=== PATIENT | female | born 1965 | race Hispanic/Latino ===

== ENCOUNTER 2018-03-25 05:35 | Observation (INO) | payer OTHER ==
[2018-03-24 18:08] LABS: BASOPHILS # (AUTO) 0.1 (0.0-0.1); BASOPHILS % 0.9 % (0.0-1.0); EOSINOPHILS # (AUTO) 0.3 (0.0-0.4); EOSINOPHILS % 3.2 % (0.0-6.0); HEMATOCRIT 40.5 % (34.2-44.1); HEMOGLOBIN 13.6 g/dL (12.0-16.0); LYMPHOCYTES # (AUTO) 3.4 (1.0-3.2); LYMPHOCYTES % 32.7 % (18.0-39.1); MEAN CORPUSCULAR HEMOGLOBIN 31.1 pg (28-32); MEAN CORPUSCULAR HGB CONC 33.6 g/dL (31-35); MEAN CORPUSCULAR VOLUME 92.7 fL (81-99); MONOCYTES # (AUTO) 0.8 (0.2-0.8); MONOCYTES % 7.4 % (4.4-11.3); NEUTROPHILS # (AUTO) 5.8 (2.1-6.9); NEUTROPHILS % 55.2 % (38.7-80.0); PLATELET COUNT 425 x10e3/uL (140-360); RED BLOOD COUNT 4.37 x10e6/uL (3.6-5.1); RED CELL DISTRIBUTION WIDTH 13.1 % (11.7-14.4)
[2018-03-24 18:19] LABS: INR 0.88; PROTHROMBIN TIME 12.8 seconds (11.9-14.5)
[2018-03-24 18:20] LABS: PARTIAL THROMBOPLASTIN TIME 27.5 seconds (23.8-35.5)
[2018-03-24 18:25] LABS: ANION GAP 14.9 mmol/L (8-16); BLOOD UREA NITROGEN 17 mg/dL (7-26); BUN/CREATININE RATIO 22 (6-25); CALCIUM 9.7 mg/dL (8.4-10.2); CARBON DIOXIDE 24 mmol/L (22-29); CHLORIDE 100 mmol/L (98-107); CREATININE, SERUM 0.77 mg/dL (0.57-1.11); EST GLOMERULAR FILTRATION RATE > 60 ML/MIN (60-); GLUCOSE 87 mg/dL (74-118); POTASSIUM 3.9 mmol/L (3.5-5.1); SODIUM 135 mmol/L (136-145)
--- NOTE | 2018-03-24 18:37 | Diagnostic Imaging Report ---
EXAMINATION: PA and lateral views of the chest. COMPARISON: None CLINICAL HISTORY: Preop examination DISCUSSION: Lines/tubes: None. Lungs: The lungs are well inflated and clear. There is no evidence of pneumonia or pulmonary edema. Pleura: There is no pleural effusion or pneumothorax. Heart and mediastinum: Cardiomediastinal silhouette is unremarkable. Pulmonary vasculature is normal. Bones and soft tissues: No acute bony abnormalities. IMPRESSION: No acute cardiopulmonary abnormalities. Signed by: Dr. Malvin Sprague M.D. on 03/24/2018 6:34 PM
[~2018-03-25] VITALS: Ht 172.7 cm; Wt 113.0 kg
[~2018-03-25 05:35] MED LIST: TYLENOL EXTRA500 MG PO; ZORVOLEX PO
--- OUTSIDE RECORDS SUMMARY | 2018-03-25 05:43 | XMS REPORT ---
Author Author [facility] Address Unknown Phone Unavailable Care Team Providers Care Lining Cutter Name Role Phone NANCY MCKEON Unavailable Unavailable Problems This patient has no known problems. Allergies, Adverse Reactions, Alerts This patient has no known allergies or adverse reactions. Medications This patient has no known medications. Results Test Description Test Time Test Comments Text Results Atomic Results Result Comments CHEST 2 VIEWS 2018-03-24 18:33:00 [place] [address] Patient Name: REN LUNA MR #: [id number] : 1965 Age/Sex: 52/F Req #: [id number] Adm Physician: Ordered by: NANCY MCKEON MD Report #: [id number] Location: OR Room/Bed: Procedure: [id number] DX/CHEST 2 VIEWS Exam Date: 03/24/18 Exam Time: 1805 REPORT STATUS: Signed EXAMINATION: PA and lateral views of the chest. COMPARISON: None CLINICAL HISTORY: Preop examination DISCUSSION: Lines/tubes: None. Lungs: The lungs are well inflated and clear. There is no evidence of pneumonia or pulmonary edema. Pleura: There is no pleural effusion or pneumothorax. Heart and mediastinum: Cardiomediastinal silhouette is unremarkable. Pulmonary vasculature is normal. Bones and soft tissues: No acute bony abnormalities. IMPRESSION: No acute cardiopulmonary abnormalities. Signed by: Dr. Key Sprague M.D. on 03/24/2018 6:34 PM Dictated By: KEY SPRAGUE MD 33 Transcribed By: HERMELINDA on 03/24/181833 COPY TO: NANCY MCKEON MD
[2018-03-25] MEDS ORDERED: THROMBIN FOR SOLN 5,000 UNIT VIAL ONE (06:41)
[2018-03-25] MEDS ORDERED: BUPIVACAINE 0.5%/EPI 30 ML SDV INJ ONE (06:41)
[2018-03-25] MEDS ORDERED: GELATIN SPONGE 12-7MM ONE (06:42)
[2018-03-25] MEDS ORDERED: BACITRACIN 50,000 UNIT VIAL ONE (06:42)
[2018-03-25] MEDS ORDERED: CEFAZOLIN SOD 2 GM/D5W 50ML 50 ML IV ONE (07:02)
[2018-03-25] MEDS ORDERED: ACETAMINOPHEN 1000 MG/100 ML 100 ML IV ONE (07:08)
[2018-03-25] MEDS ORDERED: LIDOCAINE HCL (LTA) 4 ML SOLN ONE (07:08)
[2018-03-25] MEDS ORDERED: LEXAPRO10 MG PO (07:09)
[2018-03-25] MEDS ORDERED: ONDANSETRON HCL INJ 2 MG/ML VIAL IV PRN (09:00)
[2018-03-25] MEDS: ZORVOLEX PO SCH ×3 (09:00→21:00)
[2018-03-25] MEDS ORDERED: PROMETHAZINE HCL (IM) 25 MG/ML VIAL IM PRN (09:00)
[2018-03-25] MEDS ORDERED: ACETAMINOPHEN 325 MG TAB PO PRN (09:00)
[2018-03-25] MEDS ORDERED: MAGNESIUM/ALUMINUM/SIMETHICONE 30 ML UDC PO PRN (09:00)
[2018-03-25] MEDS: ESCITALOPRAM OXALATE 10 MG TAB PO SCH (09:00)
[2018-03-25] MEDS ORDERED: CEPACOL SORE THROAT LOZENGES PO PRN (09:00)
[2018-03-25] MEDS ORDERED: MORPHINE SULFATE 5 MG/ML VIAL IM PRN (09:00)
[2018-03-25] MEDS ORDERED: ZOLPIDEM TARTRATE 5 MG TAB PO PRN (09:00)
[2018-03-25] MEDS: HYDROMORPHONE 2MG/ML 2 MG/ML ML IV PRN ×2 (09:15→23:02)
[2018-03-25] MEDS ORDERED: FENTANYL CITRATE/PF 100MCG/2 ML INJ ONE ×2 (09:24→15:16)
[2018-03-25] MEDS ORDERED: DIPHENHYDRAMINE HCL INJ 50 MG/ML VIAL ONE (09:55)
--- NOTE | 2018-03-25 10:30 | Operative Report ---
DATE OF PROCEDURE: March 25, 2018 PREOPERATIVE DIAGNOSIS: Right L4-L5 disk herniation with radiculopathy, M51.16. POSTOPERATIVE DIAGNOSIS: Right L4-L5 disk herniation with radiculopathy, M51.16. PROCEDURE: Right L4-L5 laminotomy, medial facetectomy and microsurgical diskectomy, 34873. ANESTHESIA: General. INDICATIONS: Patient is a 52-year-old woman who presents with a right L4-L5 disk herniation with inferior migration of the extruded disk fragment into the L5 lateral recess, symptomatic with severe right L5 radiculopathy. She was taken to the operating room for microsurgical diskectomy. PROCEDURE: After the induction of general anesthesia, the patient was placed on the operating table in the prone position over a Shyam frame. The lumbar region was prepped and draped in a sterile fashion. A preoperative x-ray was obtained. A small midline incision was created. Lumbar fascia was opened to the right of the midline, and subperiosteal dissection was carried out to expose the right side of the L4 and L5 laminae and the medial aspect of the facet joint. A 2nd x-ray confirmed correct localization. The operating microscope was brought in. A high-speed drill equipped with a juan diego bur was used to drill the inferior aspect of lamina of L4, the medial rim of the inferior articular process of L4 and the medial rim of the superior articular process of L5. The ligamentum flavum was resected. The dural sac and the L5 traversing nerve root were exposed. The nerve root was slightly retracted medially. The epidural veins were bipolar coagulated and divided lateral to the nerve root. The herniated disk material came into view just below the disk space within the L5 lateral recess markedly compressing that nerve root. A micro-ball probe was passed under the nerve root and used to deliver the extruded disk material, which was grasped with a micro-pituitary rongeur and removed. This maneuver was repeated multiple times, and several sizable fragments of disk were retrieved and removed from the L5 lateral recess until the nerve root was completely decompressed. The opening into the annulus of the disk was then enlarged with a #11 blade, and the loose contents of the L4-L5 disk were conservatively evacuated with curettes and pituitary rongeurs. Meticulous hemostasis was secured. The retractor was removed. The lumbar fascia was closed with #0 Vicryl sutures. Subcutaneous layer was closed with 2-0 Vicryl sutures. The skin was closed with 3-0 Monocryl sutures in a subcuticular fashion. Steri-Strips and dressing were applied. The patient was awakened, extubated and taken to the postanesthesia care unit in stable condition. No intraoperative complications were encountered. Estimated blood loss was 10 mL. Job#: [id number]
[2018-03-25] MEDS: LACTATED RINGER'S 1,000 ML IV SCH ×2 (10:59→16:56)
[2018-03-25 11:08] VITALS: BP 146/83
[2018-03-25 11:11] VITALS: BP 146/83
[2018-03-25 12:02] VITALS: BP 128/87
[2018-03-25] MEDS: OXYCODONE/ACETAMINOPHEN 5-325 1 EACH TABLET PO PRN ×2 (13:40→18:47)
[2018-03-25] MEDS: CARISOPRODOL 350 MG TAB PO PRN ×2 (13:40→18:47)
[2018-03-25] MEDS: CEFAZOLIN SOD 1 GM VIAL IV SCH ×2 (14:00→23:19)
[2018-03-25] MEDS ORDERED: CEFAZOLIN SOD 1 GM/D5W 50ML 50 ML IV SCH (14:00)
[2018-03-25] MEDS ORDERED: LIDOCAINE HCL 2% LOCAL INJ 5 ML SDV VIAL INJ ONE ×2 (15:16→15:25)
[2018-03-25] MEDS ORDERED: PROPOFOL IV EMULSION 10 MG/ML 20 ML VIAL ONE ×2 (15:16→15:25)
[2018-03-25] MEDS ORDERED: MIDAZOLAM HCL 2 MG/2 ML VIAL ONE (15:16)
[2018-03-25] MEDS ORDERED: SEVOFLURANE INHAL SOLN 250 ML PEN BTL ONE ×2 (15:16→15:25)
[2018-03-25] MEDS ORDERED: DEXAMETHASONE SOD PHOS INJ 4 MG/ML VIAL ONE ×2 (15:16→15:25)
[2018-03-25] MEDS ORDERED: ROCURONIUM BROMIDE 10 MG/ML 5ML VIAL ONE ×2 (15:16→15:25)
[2018-03-25] MEDS ORDERED: ONDANSETRON HCL INJ 2 MG/ML VIAL ONE ×2 (15:16→15:25)
[2018-03-25 15:59] VITALS: BP 127/73
[2018-03-25] MEDS ORDERED: MORPHINE SULFATE INJ 10 MG/ML IM PRN (17:00)
[2018-03-25 20:00] VITALS: BP 119/70
[2018-03-25] MEDS ORDERED: DIPHENHYDRAMINE HCL INJ 50 MG/ML VIAL IV PRN (21:15)
[2018-03-26] VITALS: BP 127/69
[2018-03-26] MEDS: OXYCODONE/ACETAMINOPHEN 5-325 1 EACH TABLET PO PRN ×3 (03:32→12:12)
[2018-03-26 04:00] VITALS: BP 121/62
[2018-03-26] MEDS: CEFAZOLIN SOD 1 GM VIAL IV SCH (06:43)
[2018-03-26 08:08] VITALS: BP 115/65
[2018-03-26] MEDS: ESCITALOPRAM OXALATE 10 MG TAB PO SCH (08:18)
[2018-03-26] MEDS: ZORVOLEX PO SCH (08:18)
[2018-03-26] MEDS ORDERED: NORCO 7.5-3251 EACH PO (09:56)
[2018-03-26 12:23] VITALS: BP 124/58
[2018-03-26 12:31] VITALS: BP 124/58
--- NOTE | 2018-04-16 07:12 | Diagnostic Imaging Report ---
Exam: Lateral view of the lumbar spine dated 03/25/2018 at 6:46 AM. History: Localization for surgery Comparison: None available Findings: Crosstable portable lateral view of the lumbar spine shows metallic markers over the L4-L5 disc space. Signed by: Dr. Clive Velez DO on 04/16/2018 7:08 AM
--- NOTE | 2018-04-16 07:13 | Diagnostic Imaging Report ---
Exam: Crosstable lateral portable view of the lumbar spine dated 03/25/2018 at 6:55 AM History: Localization for surgery Comparison: None available Findings: Metallic hemostat and probe pointing to the L4-L5 level is noted. Signed by: Dr. Clive Velez DO on 04/16/2018 7:10 AM
== END 2018-03-26 12:25 | disposition home or self-care (01) ==
LOC: OR 05:35 → PACU V 08:49 → MED/SURG 10:26
PROVIDERS: ADMIT Neurological Surgery; ATTEND Neurological Surgery
DX: M51.16 Intervertebral disc disorders with radiculopathy, lumbar region (principal); Z01.810 Encounter for preprocedural cardiovascular examination; Z01.812 Encounter for preprocedural laboratory examination; Z01.811 Encounter for preprocedural respiratory examination
CPT/HCPCS: 36415; 63047; 71046; 72020; 80048; 85025; 85610; 85730; 86850; 86900; 88304; 93005; G0378 ×2; J0131; J0690 ×3; J1100; J1170; J1200; J2001; J2250; J2405; J2704; J7120; J2270; J2550

== ENCOUNTER 2018-04-16 00:47 | Emergency (ER) | payer OTHER ==
[~2018-04-16] VITALS: Ht 172.7 cm; Wt 112.9 kg
[~2018-04-16 00:47] MED LIST changes: +LEXAPRO10 MG PO; +NORCO 7.5-3251 EACH PO
[2018-04-16] MEDS ORDERED: SODIUM CHLORIDE 0.9% 500ML 500 ML IV STA (01:13)
[2018-04-16] MEDS ORDERED: KETOROLAC TROMETHAMINE 30 MG/ML VIAL IV STA (01:13)
[2018-04-16 01:27] LABS: BASOPHILS # (AUTO) 0.1 (0.0-0.1); BASOPHILS % 0.7 % (0.0-1.0); EOSINOPHILS # (AUTO) 0.6 (0.0-0.4); EOSINOPHILS % 5.3 % (0.0-6.0); HEMATOCRIT 38.7 % (34.2-44.1); HEMOGLOBIN 13.1 g/dL (12.0-16.0); LYMPHOCYTES # (AUTO) 3.2 (1.0-3.2); LYMPHOCYTES % 28.3 % (18.0-39.1); MEAN CORPUSCULAR HEMOGLOBIN 31.1 pg (28-32); MEAN CORPUSCULAR HGB CONC 33.9 g/dL (31-35); MEAN CORPUSCULAR VOLUME 91.9 fL (81-99); MONOCYTES # (AUTO) 1.1 (0.2-0.8); MONOCYTES % 9.5 % (4.4-11.3); NEUTROPHILS # (AUTO) 6.3 (2.1-6.9); NEUTROPHILS % 55.8 % (38.7-80.0); PLATELET COUNT 314 x10e3/uL (140-360); RED BLOOD COUNT 4.21 x10e6/uL (3.6-5.1); RED CELL DISTRIBUTION WIDTH 13.5 % (11.7-14.4)
[2018-04-16 01:31] LABS: INR 0.93; PARTIAL THROMBOPLASTIN TIME 31.1 seconds (23.8-35.5); PROTHROMBIN TIME 13.3 seconds (11.9-14.5)
[2018-04-16 01:38] LABS: ALANINE AMINOTRANSFERASE 67 IU/L (0-55); ALBUMIN 3.8 g/dL (3.5-5.0); ALBUMIN/GLOBULIN RATIO 0.9 (0.8-2.0); ALKALINE PHOSPHATASE 89 IU/L (40-150); ANION GAP 15.1 mmol/L (8-16); BLOOD UREA NITROGEN 18 mg/dL (7-26); CALCIUM 9.7 mg/dL (8.4-10.2); CARBON DIOXIDE 25 mmol/L (22-29); CHLORIDE 99 mmol/L (98-107); GLUCOSE 95 mg/dL (74-118); POTASSIUM 4.1 mmol/L (3.5-5.1); SODIUM 135 mmol/L (136-145)
[2018-04-16 01:53] LABS: BUN/CREATININE RATIO 22 (6-25); CREATININE, SERUM 0.82 mg/dL (0.57-1.11); EST GLOMERULAR FILTRATION RATE > 60 ML/MIN (60-)
--- NOTE | 2018-04-16 03:24 | Diagnostic Imaging Report ---
EXAM: CT Abdomen and Pelvis WITH contrast INDICATION: Abdominal pain. Low back pain radiating to suprapubic area, fever, diarrhea post status post herniated disc repair COMPARISON: None. TECHNIQUE: Abdomen and pelvis were scanned utilizing a multidetector helical scanner from the lung base to the pubic symphysis after administration of IV contrast. Coronal and sagittal reformations were obtained. Routine protocol was performed. Scan was performed when during portal venous phase. IV CONTRAST: 100 mL of Isovue 370 ORAL CONTRAST: Water COMPLICATIONS: None RADIATION DOSE: Total DLP: 828.4 mGy*cm Estimated effective dose: (DLP x 0.015 x size factor) mSv CTDIvol has been reviewed. It is below the limits set by the Radiation Protocol Committee (RPC). Dose modulation, iterative reconstruction, and/or weight based adjustment of the mA/kV was utilized to reduce the radiation dose to as low as reasonably achievable. FINDINGS: LINES and TUBES: None. LOWER THORAX: Unremarkable HEPATOBILIARY: No focal hepatic lesions. No biliary ductal dilation. GALLBLADDER: No radio-opaque stones or sludge. No wall thickening. SPLEEN: No splenomegaly. PANCREAS: No focal masses or ductal dilatation. ADRENALS: No adrenal nodules KIDNEYS/URETERS: Kidneys enhance symmetrically. No hydronephrosis. No cystic or solid mass lesions. No stones. GI TRACT: No abnormal distention, wall thickening, or evidence of bowel obstruction. Appendix is normal. PELVIC ORGANS/BLADDER: Hysterectomy. Otherwise, unremarkable. LYMPH NODES: No lymphadenopathy. VESSELS: Circumaortic left renal vein. Mild atherosclerotic calcifications. PERITONEUM / RETROPERITONEUM: No free air or fluid. BONES: Degenerative changes of the spine. Right L4 laminectomy. SOFT TISSUES: Soft tissue stranding extending from the skin to the right L4 laminectomy site. No subcutaneous abscess. Evaluation for epidural abscess and contents within the spinal canal is limited with CT. IMPRESSION: 1. No acute abnormalities in the abdomen or pelvis. 2. Postsurgical changes related to right L4 laminectomy. No subcutaneous abscess. If there is concern for epidural abscess or for better evaluation of the spinal canal, recommend lumbar spine MRI with contrast. Signed by: DR. Dileep Byrnes MD on 04/16/2018 3:20 AM
[2018-04-16 03:49] LABS: CLARITY,URINE CLEAR (CLEAR); COLOR,URINE YELLOW (YELLOW); LEUKOCYTE ESTERASE ,URINE NEGATIVE (NEGATIVE); NITRITE,URINE NEGATIVE (NEGATIVE); PROTEIN,URINE DIPSTICK NEGATIVE (NEGATIVE)
[2018-04-16 03:50] LABS: BACTERIA,URINE RARE /HPF; BILIRUBIN,URINE NEGATIVE (NEGATIVE); EPITHELIAL CELLS,URINE FEW /LPF; KETONES,URINE NEGATIVE (NEGATIVE); RBC,URINE 0-5 /HPF (0-5); URINE UROBILINOGEN 0.2 mg/dL (0.2 - 1)
[2018-04-16 04:17] VITALS: BP 112/70
[2018-04-16] MEDS ORDERED: MIRALAX (04:23)
[2018-04-16] MEDS ORDERED: MACRODANTIN100 MG PO (04:23)
[2018-04-16] MEDS ORDERED: NITROFURANTOIN MACROCRYSTALS 100 MG CAP PO ONE (04:30)
[2018-04-16] MEDS ORDERED: SODIUM CHLORIDE 0.9% 50ML 50 ML ONE (06:16)
[2018-04-16] MEDS ORDERED: IOPAMIDOL 370 MG/ML 200 ML INFUS..BTL INJ ONE (06:16)
== END 2018-04-16 05:00 | disposition home or self-care (01) ==
LOC: ER 00:47
DX: M54.5 Low back pain (principal); N30.90 Cystitis, unspecified without hematuria; K59.00 Constipation, unspecified
CPT/HCPCS: 36415; 74177; 80053; 81001; 83605; 85025; 85610; 85730; 99284; J1885; J7040; Q9967